=== PATIENT | female | born 1995 | race Caucasian/White ===

== ENCOUNTER 2019-11-18 11:43 | Emergency (ER) | payer MEDICAID, SELFPAY ==
[2019-11-18 12:19] VITALS: BP 127/88; PULSE 115; RESP 19; TEMP 38; O2SAT 99; BMI 31.6
[2019-11-18 12:26] LABS: UTC Strep Screen (Rapid) Positive (Negative)
--- NOTE | 2019-11-18 12:29 | HMH.EDUTC ---
[facility] Disposition Clinical Impression: Strep throat Disposition: Home, Self-Care Condition on Discharge: Good Instructions: Strep Throat (Alternative Therapy), Strep Throat, DI for Strep Throat, Penicillin V Potassium Additional Instructions: *Monitor Temp, Over the counter Motrin or Tylenol as directed/as needed Tylenol every 4 hours and Motrin every 6 hours (as long as your family doctor has told you that you can take it) for fever or pain. and straight to ER if unable to lower temp less than 101.0 after medication given *Warm salt water gargles may help to soothe the throat *Throat Lozenges *Warm fluids *Sleep elevated *Humidifier/Vaporizer *If you did not take Penicillin shot or was unable to, start taking antibiotic immediately and make sure that you take it for the FULL length of time although you should start to feel better in 24-48 hours *change toothbrush and toothpaste 24-48 hours after starting to take antibiotics so you do not reinfect yourself Monitor Temp. Tylenol and/or Ibuprofen as needed. ER if fever is no less than 101 despite alternating Tylenol and Ibuprofen * Encourage fluids, water, Gatorade, powerade, pedialyte if infant/toddler/or child *Cold fluids, popsicles and ice cream may feel good on his throat Follow up IMMEDIATELY for new or worsening symptoms or no Noticeable improvement over the next 48-72 hours. 911 for difficulty breathing or swallowing Prescriptions: Penicillin V Potassium 500 mg PO BID 10 Days #20 tab Transmission Status: Received by [facility] Referrals: Bartolo Hilliard [Primary Care Provider] - As needed Forms: Work/School Release Time of Disposition: 12:37 Medical Decision Making - Stephan Inquiry Pt receiving controlled substance: No Stephan was queried for this patient: No Vital Signs: 11/18/19 12:19 Temperature 100.4 F H Temperature Source Oral Pulse Rate [Right Brachial] 115 H Respiratory Rate 19 Blood Pressure [Right Arm] 127/88 Blood Pressure Mean [Right Arm] 101 Blood Pressure Source [Right Arm] Automatic Cuff Blood Pressure Position [Right Arm] Sitting 02 Sat by Pulse Oximetry 99 Oxygen Delivery Method Room Air - Lab Data Lab results reviewed: Yes: I reviewed the patient's lab results. Lab Results 11/18/19 11:51: Strep Scn Rapid Clinic Positive A [facility] HPI - General Stated complaint: sore throat Time Seen by Provider: 11/18/19 12:29 Mode of Arrival: Family Vehicle Source of Information: Patient Limitations: No Limitations Description of Symptoms (Recalled from Triage Doc. by RN): c/o sore throat,body aches and fever since yesterday HEENT Symptoms (Recalled from RN notes): Yes Resp Symptoms (Recalled from RN notes): No Skin Symptoms (Recalled from RN notes): No MS Symptoms (Recalled from RN notes): Yes Functional Status (Recalled from RN notes): n/a - History of Present Illness Provider Complaint: Patient state that she started feeling bad yesterday State that she was having sore throat and feeling achy all over and last night started having fever States that this morning she got up and was still feeling bad and son was having similar symptoms so she brought him in and both to be checked Denies cough Denies known exposure to COVID19 - Related Data Previous Rx's Medication Instructions Recorded Penicillin V Potassium 500 mg PO BID 10 Days #20 tab 11/18/19 Allergies Allergy/AdvReac Type Severity Reaction Status Date / Time No Known Allergies Allergy Verified 12/11/17 15:16 - Worker's Comp Is this a Worker's Comp case?: No [facility] History - Hepatitis A Screen Drug use history?: No High risk sexual behaviors?: No History of sexually transmitted infection?: No Currently employed?: No Childcare worker?: No Do you have indoor plumbing?: Yes Do you have electricity?: Yes Attestation statement:: This patient has been screened for Hepatitis A risk factors. I have reviewed the patient's past medical history: Maciej
[2019-11-18 12:38] VITALS: BP 127/88; PULSE 115; RESP 19; TEMP 38; O2SAT 99
== END 2019-11-18 12:43 | disposition home or self-care (01) ==
PROVIDERS: Emergency Provider Nurse Practitioner; PCP Internal Medicine Cardiovascular Disease
DX: J02.0 Streptococcal pharyngitis (principal); Z90.49 Acquired absence of other specified parts of digestive tract
CPT/HCPCS: 87880; 99201

== ENCOUNTER → 2021-01-20 10:01 | Outpatient (CLI) | payer MEDICAID, SELFPAY ==
[2021-01-20 10:51] LABS: Chloride 103 mmol/L (98-107); Potassium 4.2 mmoL/L (3.5-5.1); Sodium 141 mmol/L (136-145)
[2021-01-20 10:53] LABS: Alanine Aminotransferase 63 U/L (12-78); Alkaline Phosphatase 89 U/L (38-126); Anion Gap 15.2 mEq/L (5-15); Aspartate Amino Transferase 40 U/L (14-36); Bilirubin,Total 0.5 mg/dl (0.2-1.3); Blood Urea Nitrogen 9 mg/dl (7-17); Carbon Dioxide 27 mmol/L (22.0-30.0); Estimated Glomerular Filt Rate 76 ml/min (>60); GFR (African American) 92 ML/MIN (>60)
[2021-01-20 10:54] LABS: Albumin Level 4.7 g/dl (3.5-5.0); Albumin/Globulin Ratio 1.5 (1.1-1.8); Calcium 9.6 mg/dl (8.4-10.2); Globulin 3.1 g/dL (1.3-3.2); Glucose 89 mg/dl (74-100); Total Protein,Serum 7.8 g/dl (6.3-8.2)
[2021-01-21 09:52] LABS: Estradiol 57.8 pg/mL (.); LH 16.9 mIU/mL (.)
== END ==
PROVIDERS: Visit Provider Nurse Practitioner Obstetrics & Gynecology
DX: N91.2 Amenorrhea, unspecified (principal); N92.6 Irregular menstruation, unspecified
CPT/HCPCS: 36415; 80053; 82670; 83001; 83002